=== PATIENT | male | born 1940 | race Caucasian/White ===

== ENCOUNTER 2020-06-26 11:29 | Emergency (ER) | payer MEDICARE, OTHER ==
--- NOTE | 2020-06-26 15:17 | EDM.PDOC ---
ED HPI GENERAL MEDICAL PROBLEM - General Chief Complaint: Lower Extremity Injury/Pain Stated Complaint: LEFT KNEE HURTS FELT SOMETHING POP Time Seen by Provider: 06/26/20 13:25 Source of Information: Reports: Patient, Family History Limitations: Reports: No Limitations - History of Present Illness INITIAL COMMENTS - FREE TEXT/NARRATIVE: Riki presents today for complaints of posterior left knee pain. He states he fell onto his knees yesterday while on his pontoon. His knee did not really hurt after that. Then today he was going to climb a ladder to adjust a bird feeder and his knee twisted, he felt a pop and pain. He reports he can walk on it but he has increased pain. When laying down the pain goes away. He has not tried any treatments or medications for his pain/injury. He denies any other injuries, fever, chills, nausea, vomiting, trauma or other concerns. - Related Data Allergies Allergy/AdvReac Type Severity Reaction Status Date / Time cimetidine [[facility] Allergy Intermediate Jaundice Verified 06/26/20 12:11 Home Meds: Home Meds Ascorbic Acid [Vitamin C] 1,000 mg PO BID 06/26/20 [History] Aspirin [Halfprin] 81 mg PO BEDTIME 06/26/20 [History] Flaxseed Oil 3,000 mg PO BID 06/26/20 [History] Multivitamin [Multi-Vitamin Daily] 1 each PO DAILY 06/26/20 [History] [place] 1,000 mg PO BID 06/26/20 [History] Timolol [Betimol 0.5% Ophth Soln] 2 drop OP BID 06/26/20 [History] atorvaSTATin [Lipitor] 40 mg PO BEDTIME 06/26/20 [History] hydroCHLOROthiazide [Hydrochlorothiazide] 25 mg PO DAILY 06/26/20 [History] lisinopriL [Lisinopril] 40 mg PO DAILY 06/26/20 [History] Past Medical History HEENT History: Reports: Glaucoma Cardiovascular History: Reports: Hypertension Gastrointestinal History: Reports: Diverticulosis Musculoskeletal History: Reports: Back Pain, Chronic Other Musculoskeletal History: bone spurs in hips, knee issues, - Past Surgical History Endocrine Surgical History: Reports: Thyroidectomy Other Endocrine Surgeries/Procedures: partial thyroidectomy Social & Family History - Tobacco Use Smoking Status *Q: Former Smoker Used Tobacco, but Quit: Yes Month/Year Tobacco Last Used: 1995 Second Hand Smoke Exposure: No - Caffeine Use Caffeine Use: Reports: None - Recreational Drug Use Recreational Drug Use: No Review of Systems - Review of Systems Review Of Systems: See Below Constitutional: Reports: No Symptoms Eyes: Reports: No Symptoms Ears: Reports: No Symptoms Nose: Reports: No Symptoms Mouth/Throat: Reports: No Symptoms Respiratory: Reports: No Symptoms Cardiovascular: Reports: No Symptoms Genitourinary: Reports: No Symptoms Musculoskeletal: Reports: Other (left knee pain) Skin: Reports: No Symptoms Neurological: Reports: No Symptoms Psychiatric: Reports: No Symptoms ED EXAM, GENERAL - Physical Exam Exam: See Below Exam Limited By: No Limitations General Appearance: Alert, WD/WN, No Apparent Distress Throat/Mouth: Normal Inspection, Normal Lips, Normal Gums, Normal Oropharynx, Normal Voice, No Airway Compromise Head: Atraumatic, Normocephalic Neck: Normal Inspection, Supple, Non-Tender, Full Range of Motion. No: Lymphadenopathy (R), Lymphadenopathy (L) Respiratory/Chest: No Respiratory Distress, Lungs Clear, Normal Breath Sounds, No Accessory Muscle Use, Chest Non-Tender. No: Crackles, Rales, Rhonchi, Wheezing Cardiovascular: Normal Peripheral Pulses, Regular Rate, Rhythm, No Edema, No Gallop, No Murmur Peripheral Pulses: 2+: Radial (L), Radial (R), Dorsalis Pedis (L), Dorsalis Pedis (R) Back Exam: Normal Inspection, Full Range of Motion. No: CVA Tenderness (R), CVA Tenderness (L) Extremities: Non-Tender, No Pedal Edema, Normal Capillary Refill, Leg Pain (left knee, lateral and posterior. Negative drawer test. ), Limited Range of Motion. No: Joint Swelling, Timbo's Sign, Increased Warmth, Pallor, Redness Neurological: Alert, Oriented, Normal Cognition, Normal Gait, Normal Reflexes, No Motor/Sensory Deficits Psychiatric: Normal Affect, Normal Mood Skin Exam: Warm, Dry, Intact, Normal Color, No Rash. No: Ecchymosis, Erythema, Increased Warmth, Petechiae, Rash Lymphatic: No Adenopathy ED TRAUMA EXTREMITY PROCEDURES - Splinting Left Lower Extremity Splint Site: left knee Pre-Procedure NV Status: Normal Post-Procedure NV Status: Normal Splint Design: Knee Immobilizer Applied & Form Fitted By: Nurse Provider Post-Splint Application NV Check: NV Status Normal, Good Position Complications: No Progress/Comments: Patient provided with crutches Course - Vital Signs Last Recorded V/S: Last Vital Signs Temp 36.7 C 06/26/20 12:32 Pulse 77 06/26/20 12:32 Resp 16 06/26/20 12:32 BP 139/66 06/26/20 12:32 Pulse Ox 95 06/26/20 12:02 - Radiology Interpretation Free Text/Narrative:: Left knee x-ray reviewed, wet read, no acute findings noted. Images reviewed with Dr. Holcomb, she is in agreement. Patient will be provided a knee brace and crutches for support Weight bearing as tolerated Naproxen, tylenol as needed for pain Follow up with orthopedics in 7 to 10 days Departure - Departure Time of Disposition: 15:16 Disposition: Home, Self-Care 01 Condition: Good Clinical Impression: Strain of knee and leg, left, Sprain of knee - Discharge Information *PRESCRIPTION DRUG MONITORING PROGRAM REVIEWED*: Not Applicable *COPY OF PRESCRIPTION DRUG MONITORING REPORT IN PATIENT ELSIE: Not Applicable Instructions: Knee Sprain, Adult, [id number] Referrals: Inna Robertson DO [Primary Care Provider] - Forms: ED Department Discharge Additional Instructions: You were evaluated and treated for left knee sprain with blunt impact followed by twisting motion and pop. You have been provided a knee brace and crutches for support Weight bearing as tolerated Naproxen, tylenol as needed for pain Follow up with orthopedics in 7 to 10 days Return for any worsening, issues or concerns Sepsis Event Note (ED) - Evaluation Sepsis Screening Result: No Definite Risk - Focused Exam Vital Signs: Vital Signs Temp Pulse Resp BP Pulse Ox 06/26/20 12:32 36.7 C 77 16 139/66 06/26/20 12:02 36.7 C 77 16 159/56 H 95 - Assessment/Plan Assessment:: Strain of knee and leg, left, Sprain of knee Plan: Patient evaluated and treated for left knee sprain with blunt impact followed by twisting motion and pop. He has been provided a knee brace and crutches for support Weight bearing as tolerated Naproxen, tylenol as needed for pain Follow up with orthopedics in 7 to 10 days Return for any worsening, issues or concerns
--- NOTE | 2020-06-26 15:25 | CR ---
Knee 3V Lt CLINICAL HISTORY: Injury FINDINGS: No acute fracture or dislocation is noted. There are no osseous lesions. There is some periarticular and patellar spurring. Impression: [id number] osteoarthritic change No fracture
== END 2020-06-26 15:54 | disposition home or self-care (01) ==
LOC: JP.ED 11:29
DX: S86.812A Strain of other muscle(s) and tendon(s) at lower leg level, left leg, initial encounter (principal); S83.92XA Sprain of unspecified site of left knee, initial encounter; I10 Essential (primary) hypertension; Z87.891 Personal history of nicotine dependence; Z88.3 Allergy status to other anti-infective agents; Z79.899 Other long term (current) drug therapy; X50.1XXA Overexertion from prolonged static or awkward postures, initial encounter
CPT/HCPCS: 73562-26-LT; 73562-LT; 99283